=== PATIENT | female | born 1945 | race Caucasian/White ===

== ENCOUNTER → 2016-10-28 | Outpatient (CLI) | payer MEDICARE, BC ==
[~2016-10-28] MED LIST: HYDRODIURIL25 MG PO; LOPRESSOR25 MG PO; ZESTRIL40 MG PO
--- NOTE | ~2016-10-28 | ENPV ---
Carotid Duplex Study Demographics Patient Name SARAY SHERWOOD Date of Study 10/28/2016 Patient Number [id number] Gender Female Date of 1945 Age 71 Visit Number [id number] Height 51 Accession Number [id number] Weight 200 Referring Bernardo Mandujano MD Physician Physician Physician Ordering Bernardo Disease And Insect Control Boss Physician Jaky JENKINS Cloth Folder Machine Yanely Lombardo BS, RT Conclusions Summary The right internal carotid artery has severe, 60-79%, plaque and stenosis. The right vertebral artery is present with antegrade flow. The left internal carotid artery has severe, 60-79%, plaque and stenosis. The left vertebral artery is present with antegrade flow. Procedure Type of Study: Cerebral:Carotid, Carotid Doppler Bilateral. Indications for Study:Pre surgical clearance. Patient Status:Routine. Study Location:Vascular Lab. Technical Quality:Adequate visualization. Risk Factors - The patient's risk factor(s) include: arterial hypertension. Velocities are measured in cm/s ; Diameters are measured in cm Carotid Right Measurements Carotid Left Measurements + +--------+--------+ + + + +--------+ --------+ + + !Location !PSV !EDV !Angle !%Stenosis ! !Location !PSV ! EDV !Angle !%Stenosis ! + +--------+--------+ + + + +--------+ --------+ + + !Prox CCA !116 !18 !60 ! ! !Prox CCA !107 ! 26 !60 ! ! + +--------+--------+ + + + +--------+ --------+ + + !Dist CCA !95 !24 !60 ! ! !Dist CCA !96 ! 28 !60 ! ! + +--------+--------+ + + + +--------+ --------+ + + !Prox ICA !198 !64 !60 ! ! !Prox ICA !113 ! 29 !60 ! ! + +--------+--------+ + + + +--------+ --------+ + + !Dist ICA !104 !41 !60 ! ! !Dist ICA !152 ! 55 !60 ! ! + +--------+--------+ + + + +--------+ --------+ + + !Prox ECA !103 ! !60 ! ! !Prox ECA !77 ! !60 ! ! + +--------+--------+ + + + +--------+ --------+ + + !Vertebral !55 ! !60 ! ! !Vertebral !89 ! !60 ! ! + +--------+--------+ + + + +--------+ --------+ + + !Subclavian !69 ! !60 ! ! !Subclavian !85 ! !60 ! ! + +--------+--------+ + + + +--------+ --------+ + + - There is antegrade vertebral flow noted on the right side. - There is antegrade verte bral flow noted on the left side. - Add'l Measurements:ICAPSV/CCAPSV 1.71.ICAEDV/CCAEDV 3.66. - Add'l Measurements:ICAPS V/CCAPSV 1.42.ICAEDV/CCAEDV 2.08. Signature dtt: Wild Crenshaw dtd: 10/28/16 1104 Physician Self Edit
--- NOTE | ~2016-10-28 | ECHO ---
Transthoracic Echocardiography Report (TTE) Demographics Patient Name SARAY SHERWOOD Date of Study 10/28/2016 Patient Number [id number] Visit Number [id number] Date of 1945 Room Number Gender Female Number Age 71 year(s) Referring Gera Castillo MD Office Associate Danish RVT, [facility] Physician Shan Duque Physician Interpreting Bernardo Starkey MD Quality Control Representative Physician Supervising Ordering Bernardo Starkey MD, MD/MLP Physician Nurse Stress Manager Underwriting Conclusions Contractility Score Summary Normal Left Ventricular contractility was noted. Summary Hypertrophic obstructive cardiomyopathy. The estimated left ventricular ejection fraction is 70-75%. Asymmetric septal left ventricular hypertrophy. Resting LVOT velocity is 2.11 m/s, with a peak gradient of 18 mmHg suggestive of left ventricular outflow tract obstruction at rest. During valsalva maneuver, LVOT velocity increases to 2.53 m/s, peak gradient of 26 mmHg, consistent with dynamic left ventricle outflow obstruction. Normal right ventricle structure and function. Diastolic assessment reveals Grade I diastolic dysfunction. The left atrium is severely dilated. Moderate mitral stenosis. Moderate mitral regurgitation by color Doppler. Procedure Type of Study TTE procedure:2D Echocardiogram, M-Mode, Doppler , Color Doppler. Procedure Date Date: 10/28/2016 Start: 11:39 AM Study Location: Echo Lab Technical Quality: Adequate visualization Indications:Preop cardiac evaluation and Abnormal ECG. Appropriate Use Criteria: 9 Patient Status: Routine HR: 81 bpm BP: 131/93 mmHg M-Mode/2D Measurements LV Diastolic Dimension: 3.09 cm LV Systolic Dimension: 1.54 cm LV Septum Diastolic: 2.69 cm LV PW Diastolic: 1.44 cm AO Root Dimension: 2.3 cm Cardiac Output: 5.56 l/min AV Cusp Separation: 0.7 cm RV Diastolic Dimension: 2.07 cm LA volume: 42 ml LVOT: 1.8 cm RV Base: 2.54 cm LVOT VTI: 27 cm RV Mid: 1.94 cm LV Stroke volume: 68.67 ml TAPSE: 1.94 cm TDI-S': 15.8 cm/s Doppler Measurements AV Peak Velocity: 1.9 m/s MV Peak E-Wave: 1.02 m/s AV Peak Gradient: 14.44 mmHg MV Peak A-Wave: 1.97 m/s AV Mean Gradient: 10 mmHg MV E/A Ratio: 0.52 LVOT Peak Velocity: 1.43 m/s MV Mean Gradient: 8 mmHg PV Peak Velocity: 1.13 m/s PV Peak Gradient: 5.11 mmHg Findings Left Ventricle Asymmetric septal left ventricular hypertrophy. Diastolic assessment reveals Grade I diastolic dysfunction. Right Ventricle Normal right ventricle structure and function. Left Atrium The left atrium is severely dilated. Right Atrium Normal right atrial size. IVC imaging is consistent with normal RA pressures. Mitral Valve Moderate mitral annular calcification. Moderrate mitral stenosis. Moderate mitral regurgitation by color Doppler. There is systolic anterior motion of the MV. Aortic Valve The aortic valve is mildly sclerotic. There is trivial aortic regurgitation by color Doppler. Resting LVOT velocity is 2.11 m/s, with a peak gradient of 18 mmHg suggestive of left ventricular outflow tract obstruction at rest. During valsalva maneuver, LVOT velocity increases to 2.53 m/s, peak gradient of 26 mmHg, consistent with dynamic left ventricle outflow obstruction. Tricuspid Valve Trivial tricuspid regurgitation by color Doppler. Pulmonic Valve Mild pulmonic valve regurgitation by color Doppler. Pericardial Effusion No evidence of pericardial effusion. Pleural Effusion No evidence of pleural effusion. Contractility Score LV regional wall motion:(0-Non visualized 1-Normal 2-Hypokinesis 3-Akinesis 4-Dyskinesis 5-Aneurysm) Signature dtt: CHINMAY MALDONADO dtd: 10/28/16 1139 Physician Self Edit
--- NOTE | ~2016-10-28 | ESTC ---
Cardiac Perfusion Imaging Demographics Patient Name PRESLEY Dubose Gender Female Patient Number [id number] Race Visit Number [id number] Ethnicity [employer] ID Room Number Accession Number [id number] Height 51 inches Date of 1945 Weight 200 pounds Interpreting Bernardo Jaky Date of study 10/28/2016 Physician MD Supervising MD/YONNYP Laurent Chen APRN NM Technologist Gerry Mattson Ordering Physician Stress pilot plant technician Stress ECG Reading Laurent Chen APRN Nurse Santo Rivera RN Physician The procedure was explained in detail to the patient. Risks, complications and alternative treatments were reviewed. Written consent was obtained. Procedure Admit Source:Other. Procedure Type: Nuclear Stress Test:Pharmacological, Lexiscan, Cardiolite Stress Test Procedure Start time: 10/28/2016 09:55 Indications: Pre surgical clearance. Risk Factors The patient risk factors include:hypertension. Conclusions Summary Perfusion Images: The overall quality of the study is good. Left ventricular cavity is noted to be normal on the stress and normal on the rest images. There is no evidence of abnormal lung activity. The right ventricle is not visualized an cannot be assessed. Impression ECG portion of the lexiscan stress test is clinically nondiagnostic for ischemia by diagnostic criteria. Myocardial perfusion imaging is severely abnormal. The images reveal a reversible defect in the entire anterior wall anterolateral/distal anteroseptal consistent with ischemia . Overall left ventricular systolic function was abnormal. This is a high risk stress test. Calculated LVEF is 49% and TID ratio is 1.24. There are no previous studies for comparison . Stress Protocols Resting ECG SInus rhythm with LBBB Pre-stress physical exam: Patient assessed by Ermias CHIU prior to testing. Chest - CTA Cardio - RRR, III/ SM Predicted HR: 149 bpm HR response: Appropriate BP response: Appropriate Reason for termination:Infusion complete ECG Findings Indeterminate ECG due to baseline abnormalities. Arrhythmias No rhythm abnormality. Symptoms No symptoms with Lexiscan infusion. Post test completion and lexiscan infusion - patient developed hypotension and HR slowed to 60 BMP from baseline 90's. Asypotomatic during hypotension - lowest 70/40, started NACL bolus of 500ml - BP recovered to 101/59. Complications Procedure complication: None. Stress Interpretation Appropriate hemodynamic response to Lexiscan. ECG portion is nondiagnostic for ischemia due to underlying ST changes from LBBB. Will correlate with nuclear images. Imaging Results Summed scores - Summed stress score: 23 - Summed rest score: 5 - Summed difference score: 18 Stress ejection Ejection fraction:49 % EDV :157 ml ESV :80 ml Stroke volume :77 ml LV mass :185 gr Imaging Protocols Rest Stress Isotope:Tc99m Sestamibi IV Isotope: Tc99m Sestamibi IV Isotope dose:13.9 mCi Isotope dose:43.7 mCi Date:10/28/2016 07:58 Date:10/28/2016 10:15 Technique: SPECT Technique: Gated Supine SPECT Supine Scan Time:45-60 minutes post Scan Time:45-60 minutes post injection injection Procedure Medications - Regadenoson (Lexiscan) 0.4 mg IV over 10-15 sec. I.V. 0.4 mg. - NaCL 0.9 I.V. bolus 500 ml. Medications administered per verbal order and read back to physician prior to administration. Medical History Admission Data Admission date: 10/28/2016 Admission Time: Hospital Status: Outpatient. Signatures dtt: JAKY MALDONADO dtd: 10/28/16 0955 Physician Self Edit
== END | disposition disaster alternative care site (69) ==
LOC: GRAD 07:30
DX: I44.7 Left bundle-branch block, unspecified (principal); I10 Essential (primary) hypertension; I42.8 Other cardiomyopathies; I51.7 Cardiomegaly; I72.9 Aneurysm of unspecified site; I65.23 Occlusion and stenosis of bilateral carotid arteries; I34.0 Nonrheumatic mitral (valve) insufficiency; R01.1 Cardiac murmur, unspecified; R09.89 Other specified symptoms and signs involving the circulatory and respiratory systems
CPT/HCPCS: A9500; J0280; J1644; J2001; J2250; J2785; J3010; J7030

== ENCOUNTER 2016-10-30 09:04 | Outpatient (CLI) | payer MEDICARE, BC ==
[~2016-10-30] VITALS: Ht 160 cm; Wt 77.8 kg
--- NOTE | ~2016-10-30 | CATH ---
Cardiac Diagnostic Report Demographics Patient Name PRESLEY Dubose Gender Female Date of 1945 Age 71 year(s) Patient Number [id number] Date of Study 10/30/2016 Visit Number [id number] Room Number [id number] [place] [id number] Ht 160 cm Wt 77.8 kg Referring Gera Castillo MD Primary Physician Physician Performing [facility] Secondary Physician Physician Jaky JENKINS Diagnostic [facility] Assisting Physician Physician Jaky JENKINS Interventional Physician Cdl Dedicated Truck Driver Physician Findings and Conclusions Diagnostic Findings and Conclusion 1. Triple vessel obstructive CAD. 2. HOCM with post PVC gradient peak to peak gradient of 128 mmHg and mean gradient of 73 mmHg. Diagnostic Recommendations 1. Septal Myectomy 2. CABG for complete revascularization 3. Reviewed echocardiogram and coronary angiogram with Dr. Pierce. Pt has appt in [place] surgery clinic for preop on 11/02/2016. Procedure Description The patient was brought to the diagnostic cardiac catheterization-EP laboratory in the fasting, non-sedated state. Informed consent was obtained in the written and verbal form after the risks and benefits were explained. The patient had no further questions and agreed to proceed. The planned puncture-incision site(s) were shaved and prepped with ChloraPrep and draped in the usual sterile manner. Conscious sedation, supplemental oxygen, and pain control medications were delivered by a registered nurse under physician guidance. Surface ECG rhythm, blood pressure measurement, and pulse oximetry were monitored throughout the procedure. Arterial access. The access site was infiltrated with lidocaine. The vessel was entered with the Seldinger technique. A sheath was advanced into the vessel and used for catheter placement. Selective left coronary angiography. A catheter was advanced into the left coronary vessel ostium under Fluoroscopic guidance. Contrast was injected by hand. Images were obtained in multiple projections. Selective right coronary angiography. A catheter was advanced into the right coronary vessel ostium under fluoroscopic guidance. Contrast was injected by hand. Images were obtained in multiple projections. Left heart catheterization. A catheter was advanced across the aortic valve to the left ventricle under fluoroscopic guidance. Resting hemodynamics were obtained. Arterial artery hemostasis was achieved. The patient was transferred to a regular nursing floor via cart accompanied by a nurse. The patient left the laboratory in stable condition. Diagnostic Cath Status: Elective Procedure Procedure Type Diagnostic procedure:Angiography:, Coronary Angios w/[facility] Indications: Positive Standard Stess: High. The procedure was explained in detail to the patient. Risks, complications and alternative treatments were reviewed. Written consent was obtained. Medications Reviewed with Patient prior to Procedure. Angiographic Findings Dominance: Right Cardiac Arteries and Lesion Findings LMCA: Abnormal. Lesion on LMCA: Ostial.40% stenosis . LAD: Lesion on Prox LAD: Ostial.70% stenosis . LCx: Abnormal. Lesion on 1st Ob Manisha: Proximal subsection.80% stenosis . RCA: Abnormal. Lesion on Prox RCA: Proximal subsection.60% stenosis . Lesion on 1st RPL: Proximal subsection.90% stenosis . Coronary Tree Procedure Data Procedure Date Date: 10/30/2016Start: 11:05 AMEnd: 12:00 PM Entry Locations - Retrograde Percutaneous access was performed through the Right Radial artery (Primary location). A 6 Fr sheath was inserted. Hemostasis was successfully obtained using an R band. Closure Comments: 13 cc of air in R band placed by Manjeet Caballero.. Procedure Medications Order and Administration + + + + + !Time !Medication !Dosage !Route ! + + + + + !10/30/2016 11:02 AM !Versed !1 mg !I.V. ! + + + + + !10/30/2016 11:10 AM !Radial Verapamil !2.5 mg ! ! + + + + + !10/30/2016 11:11 AM !Heparin (ACC_3) !4000 units !I.V. bolus ! + + + + + !10/30/2016 11:42 AM !Versed !1 mg !I.V. ! + + + + + Devices Used - A5 Fr. BS JR 4 Diag. Catheterwas used for:Right coronary angiography. - A5 Fr. BS JL 3.5 Diag. Catheterwas used for:Left coronary angiography. - A6 Fr. Dual Lumen Pigtailwas used for:LV Pressures.Unable to cannulate the vessel. - A6 Fr. BS AL1 Diag. Catheterwas used for:LV Pressures.Unable to cannulate the vessel. - A5 Fr. BS MPA2 Diag. Catheterwas used for:Valve Crossing. - A6 Fr. Dual Lumen Pigtailwas used for:LV Pressures. Contrast Material - Isovue 40085 ml Fluoroscopy Time: Diagnostic: 17:48 minutes. Total: 17:48 minutes. Fluoroscopy Dose: Diagnostic: 1381 mGy. Total: 1381 mGy. Estimated Blood Loss: 15 ml. Medical History Allergies - No known allergies. Risk Factors The patient risk factors include:treated hypertension, last creatinine: 0.7 mg/dl and creatinine clearance: 90.54 ml/min. Admission Data Admission Date: 10/30/2016 Admission Time: 09:04 AM Admit Source: Other Insurance Payors: Medicare. Admission Medications + +------+------+ + + + + !Medication !Dosage!Times !Last !Last !Administered !Comments ! ! ! !Per !Delivery !Delivery ! ! ! ! ! !Day !Date !Time ! ! ! + +------+------+ + + + + !VIGNESH ! ! ! ! ! ! ! !Inhibitor ! ! ! ! ! ! ! !(any) ! ! ! ! ! ! ! + +------+------+ + + + + !Beta Shreyas! ! ! ! ! ! ! !(any) ! ! ! ! ! ! ! + +------+------+ + + + + Clinical Evaluation Leading to Procedure - There were no CAD presentation symptoms. - The patient's anginal syndrome during the past two weeks was assessed as: Class II according to the [place] Cardiovascular Society Classification System (CCS). Anti-anginal medications were prescribed during the past two weeks. The medication is: Beta Blockers. - The reason for the patient's laboratory mechanic helper visit is evaluation of cardiomyopathy and/or evaluation of left ventricular systolic dysfunction, and pre-operative evaluation before non-cardiac surgery. Hemodynamics Condition: Rest O2 Consumption: Estimated: 163.85Heart Rate: 66 bpm Pressures (mmHg) +-----+ + !Site !Pressure ! +-----+ + !AO !145/86 (114) ! +-----+ + !AO !124/57 (90) ! +-----+ + !AO !118/49 (87) ! +-----+ + !LV !185/-3 ,14 ! +-----+ + !LV !177/0 ,12 ! +-----+ + !AO !121/61 (89) ! +-----+ + !AO !92/44 (75) ! +-----+ + !LV !220/1 ,12 ! +-----+ + !LV !179/1 ,12 ! +-----+ + !AO !119/60 (88) ! +-----+ + !LV !178/5 ,12 ! +-----+ + !AO !/45 (76) ! +-----+ + !LV !196/3 ,23 ! +-----+ + !AO !44 (76) ! +-----+ + !LV !196/2 ,22 ! +-----+ + !AO !44 (75) ! +-----+ + !LV !196/2 ,21 ! +-----+ + !AO !108/54 (78) ! +-----+ + !LV !171/2 ,14 ! +-----+ + !AO !125/65 (91) ! +-----+ + !LV !160/2 ,9 ! +-----+ + !AO !125/64 (91) ! +-----+ + !LV !160/0 ,9 ! +-----+ + !AO !122/58 (88) ! +-----+ + !AO !116/48 (89) ! +-----+ + !LV !189/-1 ,18 ! +-----+ + !LV !174/0 ,13 ! +-----+ + !AO !124/61 (89) ! +-----+ + !LV !168/0 ,11 ! +-----+ + !AO !120/56 (88) ! +-----+ + !LV !177/1 ,15 ! +-----+ + !AO !127/65 (94) ! +-----+ + !LV !165/0 ,2 ! +-----+ + !AO !133/69 (97) ! +-----+ + !AO !133/69 (97) ! +-----+ + !LV !162/1 ,6 ! +-----+ + !LV !162/1 ,6 ! +-----+ + !AO !130/67 (94) ! +-----+ + !LV !160/0 ,7 ! +-----+ + !AO !128/66 (93) ! +-----+ + !AO !128/66 (89) ! +-----+ + !LV !158/0 ,7 ! +-----+ + !LV !158/0 ,7 ! +-----+ + !AO !98/61 (76) ! +-----+ + !LV !140/-3 ,0 ! +-----+ + !AO !96/54 (71) ! +-----+ + !LV !134/0 ,5 ! +-----+ + Valve Gradients and Areas + +---------+---------+---------+ +---------+ + !Valve !Peak !Mean !Area !Index !Flow !Source ! + +---------+---------+---------+ +---------+ + !Aortic !30 !22 ! ! ! ! ! + +---------+---------+---------+ +---------+ + !Aortic !30 !22 ! ! ! ! ! + +---------+---------+---------+ +---------+ + Shunts Oxygen Values O2 Capacity 176.8 O2 Consumption 163.85 Discharge Data Discharge Date: 10/30/2016 Hospital Status: Outpatient Signatures dtt: JAKY MALDONADO dtd: 10/30/16 1105 Physician Self Edit
[2016-10-30 09:48] LABS: BASOPHIL # 0.1 K/uL (0.0-0.2); BASOPHIL % 0.4 %; EOSINOPHIL # 0.1 K/uL (0.0-0.5); HEMATOCRIT 39.9 % (33.0-46.0); IMMATURE GRANULOCYTE % 0.3 %; LYMPHOCYTE # 1.3 K/uL (0.8-4.0); LYMPHOCYTE % 10.9 %; MCH 28.3 pg (27.0-34.0); MCHC 32.6 gm/dL (32.0-36.5); MCV 86.7 fl (83.0-98.0); MONOCYTE # 1.2 K/uL (0.0-1.0); MONOCYTE % 10.3 %; MPV 10.5 fl (9.4-12.4); NEUTROPHIL # (ANC) 8.9 K/uL (1.8-7.8); NEUTROPHIL % 77.1 %; NRBC % 0 /100WBC (0-0.00); PLATELET COUNT 379 K/uL (150-450); WBC 11.6 K/uL (4.0-11.0)
[2016-10-30 10:01] LABS: PROTIME 10.5 SECONDS (9.8-11.4); PTT 29 SECONDS (25-32)
[2016-10-30 10:08] LABS: ALBUMIN 3.4 gm/dL (3.5-5.0); ALK PHOS 102 IU/L (33-138); ALT 17 IU/L (12-78); ANION GAP 9.7 (10.0-19.0); AST 14 IU/L (10-40); BLOOD UREA NITROGEN 17 mg/dL (6-24); CALCIUM 8.9 mg/dL (8.5-10.5); CHLORIDE 97 mMol/L (96-110); CO2 31 mMol/L (22-32); CREATININE 0.7 mg/dL (0.5-1.1); ESTIMATED GFR (MDRD EQUATION) > 60; POTASSIUM 3.7 mMol/L (3.7-5.1); SODIUM 134 mMol/L (135-145); TOTAL BILIRUBIN 0.8 mg/dL (0.0-1.5); TOTAL PROTEIN 7.3 g/dL (6.0-8.4)
--- NOTE | 2016-10-30 12:52 | NUR ---
1235 REPORT TO Sedrick FRANCOIS RN
[2016-10-30 16:34] LABS: BILIRUBIN URINE NEGATIVE (NEGATIVE); BLOOD URINE 10 /UL (NEGATIVE); COLOR URINE YELLOW (YELLOW); GLUCOSE URINE NEGATIVE (NEGATIVE); KETONE URINE NEGATIVE (NEGATIVE); LEUKOCYTES URINE 500 /UL (NEGATIVE); NITRITE URINE NEGATIVE (NEGATIVE); PH URINE 6.5 (4.0-8.0); PROTEIN URINE 15 mg/dL (NEGATIVE); TURBIDITY URINE CLEAR (CLEAR); UROBILINOGEN URINE 4 mg/dL (NORMAL)
[2016-10-30 16:50] LABS: BACTERIA URINE MODERATE (NEGATIVE); MUCUS URINE 1+ (NEGATIVE); RBC URINE 0-2 #/HPF (NEGATIVE)
== END 2016-10-30 16:30 | disposition disaster alternative care site (69) ==
LOC: GPOC 09:04 → GPCU 09:04 → GPOC 16:30
PROVIDERS: Internal Medicine Interventional Cardiology; Thoracic Surgery (Cardiothoracic Vascular Surgery)
DX: R94.39 Abnormal result of other cardiovascular function study (principal); I42.1 Obstructive hypertrophic cardiomyopathy; I10 Essential (primary) hypertension
CPT/HCPCS: C1769; C1887; J1644; J2001; J2250; J3010; J7030

== ENCOUNTER 2016-11-03 10:04 | Inpatient (IN) | payer MEDICARE, BC ==
[~2016-11-03] VITALS: Ht 160 cm; Wt 83.7 kg
--- NOTE | ~2016-11-03 | DS ---
PATIENT'S NAME: SARAY SHERWOOD [facility] AGE: 71 Y [address] ROOM: [id number] [place], [place] [address] LOCATION: GPCU ADMIT DATE: 11/03/2016 Discharge Summary DISCHARGE DATE: 11/13/2016 FAMILY PHYSICIAN: Cyril Boss MD ATTENDING PHYSICIAN: Srini Pierce HISTORY OF PRESENT ILLNESS/HOSPITAL COURSE: The patient is a 71-year-old white female who was seen and evaluated by her primary care provider to undergo a right rotator tear cuff surgery and had been recommended to undergo cardiac clearance before surgery. She was set up to see Dr. Jaky Chang for a cardiac work with findings demonstrating obstructive hypertrophic cardiomyopathy as well as a cardiac catheterization revealing multivessel coronary artery disease. She was seen in consultation by Dr. Pierce for coronary artery bypass grafting and a septal myectomy. In the course of the workup, she had bilateral carotid Doppler studies performed. These carotid studies demonstrate high-grade heavily calcified stenosis with right worse than left. She, therefore, was seen in consultation by Dr. Viera to undergo a right-sided carotid endarterectomy prior to undergoing surgical revascularization. On 11/04/2016, the patient presented to the operative suite for a combined carotid/CABG surgery with the CABG portion consisting of a right coronary artery bypass grafting x4 with left internal mammary artery bypass to the LAD, reverse saphenous vein graft to the posterior descending artery, reverse saphenous vein graft to the posterior lateral septal branch, and a reverse saphenous vein graft to the obtuse marginal, in addition to the septal myectomy. Following the procedure, the patient transferred up to the ICU. Her hemodynamic status was monitored carefully. She extubated without complication. She did receive a couple units of packed cells. She did show evidence of active mediastinal bleeding and did return to the operative suite approximately 7 hours from the original surgery for a mediastinal exploration with control of bleeding which was indeed successful. The patient transferred back to the Intensive Care Unit. She was intubated. She utilized a lex. She extubated without complication in the hours following. She was weaned off the lex. She was transferred to the progressive care floor on 11/07/2016. The patient did have runs of postoperative atrial fibrillation. She did receive several boluses of amiodarone throughout the hospital stay. We started her on Epogen and iron for acute blood loss anemia and she did receive several units of packed cells prior. Her chest tubes, pacemaking wires, and Kim catheter were discontinued in the routine postoperative timeframe. Her Kim catheter had been tubbed on and she did develop hematuria which did clear within a 24- hour period. We did start her on Xarelto given her persistent atrial fibrillation. She was placed on oral amiodarone as well when she was not receiving IV amiodarone. She did mount an increased white blood cell count. She did become diaphoretic. We did do blood cultures which were negative. PATIENT'S NAME: SARAY SHERWOOD [facility] AGE: 71 Y [address] ROOM: [place] [address] LOCATION: GPCU ADMIT DATE: 11/03/2016 Discharge Summary DISCHARGE DATE: 11/13/2016 FAMILY PHYSICIAN: Cyril Boss MD ATTENDING PHYSICIAN: Srini Pierce Sputum culture which was negative. She had no healing complications concerning for infection. Her UA, however, did return positive and she was treated with the appropriate antibiotic for urinary tract infection. Her atrial fibrillation did stabilize and she did return to normal sinus rhythm. Care management did work with the patient and her family with expectations for the patient's discharge and their desires for any skilled care thereafter. The patient's family did ask for [facility]. The arrangements were made, and on 11/13/2016, the patient was found stable to discharge to [facility]. ADMISSION DIAGNOSES: Include deconditioning secondary to coronary artery bypass grafting, septal myectomy, and carotid endarterectomy to the right. SECONDARY DIAGNOSES: Include peripheral vascular disease, coronary artery disease, hypertension, postoperative paroxysmal atrial fibrillation, osteoarthritis, and postoperative urinary tract infection. FOLLOWUP: The patient will follow with her primary care provider, Dr. Cyril Boss. The patient will be asked to follow up with Dr. Pierce, Dr. Chang, and Dr. Viera in 2 weeks on the same day with a chest x-ray and lab prior. DISCHARGE INSTRUCTIONS: The patient is to have a regular diet of regular texture. She is full weightbearing status with a raised wheeled walker and strict sternal precautions until 12/16/2016. She is to work with PT and OT. The patient will not have any dressings. The patient is to have her graft site sutures removed at the ankle, knee, and groin in the left leg on 11/23/2016. She may shower. The patient is also to wear an ankle stability boot on in the day time and off in the nighttime. The patient will also be granted one glass of wine per evening. DISCHARGE MEDICATIONS: Include, 1. Amiodarone 400 mg twice a day. 2. Aspirin 81 mg daily. 3. Lipitor 40 mg daily. 4. Cipro 500 mg b.i.d. until gone. 5. Colace 100 mg b.i.d. 6. Pepcid 20 mg b.i.d. 7. Ferrous sulfate 325 mg daily. 8. Lasix 40 mg daily. 9. Prinivil 10 mg daily. 10. Metoprolol 25 mg b.i.d. 11. Multivitamin daily. 12. Potassium chloride 20 mEq daily. 13. Xarelto 20 mg daily. 14. Tylenol 650 mg q.4 hours p.r.n. for mild pain. PATIENT'S NAME: SARAY SHERWOOD [facility] AGE: 71 Y [address] ROOM: [place] [address] [facility] ADMIT DATE: 11/03/2016 Discharge Summary DISCHARGE DATE: 11/13/2016 FAMILY PHYSICIAN: Cyril Boss MD ATTENDING PHYSICIAN: Srini Pierce 15. [place] 5/325 one to two every 4 to 6 hours as needed for pain. 16. Dulcolax suppository 10 mg p.r.n. constipation. 17. Milk of magnesia 30 mL daily/p.r.n. constipation. 18. Zofran 4 mg q.6 hours p.r.n. nausea and vomiting. The patient does verbalize understanding of the discharge orders. The patient discharged to [facility] under the care of her primary care provider in stable condition. ARNULFO DUVALL APRN FOR DO ARI ARMENDARIZQ/petral /[id number] d: 12/03/16 0525 t: 12/23/16 0754, DISCHARGE SUMMARY
--- NOTE | ~2016-11-03 | ENPV ---
Vascular Lower Extremity Vein Mapping Procedure Demographics Patient Name SARAY SHERWOOD Date of Study 11/03/2016 Patient Number [id number] Gender Female Date of 1945 Age 71 Visit Number [id number] Height Accession Number [id number] Weight Room Number G6203 BSA BMI Referring Kari Domingo MD Physician DO Physician Physician Ordering Physician Kari Cheng DO [employer]rication Mig [employer]der [employer] Sabrina Tolbert RVT Conclusions Summary Enlarged lymph node in the left groin. Right GSV appears suitable for harvest from groin to knee. Left GSV appears suitable for harvest throughout left leg. Procedure Type of Study: Veins:Lower Extremity Vein Mapping, Vein Mapping NH. Indications for Study:Pre-op CABG. Appropriate Use Criteria:9 Allergies - No known allergies. Patient Status:Routine. Study Location:Vascular Lab. Technical Quality:Adequate visualization. Velocities are measured in cm/s ; Diameters are measured in cm + ++--------++--------+ !Superficial - Great Saphenous Vein !!Right !!Left ! + ++--------++--------+ !Location !!Diameter!!Diameter! + ++--------++--------+ !Sapheno Femoral Junction !!0.36 !!0.43 ! + ++--------++--------+ !GSV High Thigh !!0.35 !!0.28 ! + ++--------++--------+ !GSV Mid Thigh !!0.27 !!0.31 ! + ++--------++--------+ !GSV Low Thigh !!0.31 !!0.29 ! + ++--------++--------+ !GSV Knee !!0.25 !!0.29 ! + ++--------++--------+ !GSV High Calf !!0.18 !!0.27 ! + ++--------++--------+ !GSV Mid Calf !!0.15 !!0.19 ! + ++--------++--------+ !GSV Low Calf !!0.12 !!0.21 ! + ++--------++--------+ Signature dtt: HERVE AREVALO dtmya: 11/03/16 1208 Physician Self Edit
--- NOTE | ~2016-11-03 | OR ---
PATIENT'S NAME: SARAY DENNY [facility] AGE: 71 Y [address] ROOM: [address] [place] [id number] LOCATION: GPCU ADMIT DATE: 11/03/2016 OR/Procedure Report DISCHARGE DATE: 11/13/2016 FAMILY PHYSICIAN: Cyril Boss MD ATTENDING PHYSICIAN: Srini Pierce SURGEON: Srini Pierce DO ANALOG IC DESIGN ARCHITECT: DATE OF PROCEDURE: 11/04/2016 PREOPERATIVE DIAGNOSIS: Active mediastinal bleeding. POSTOPERATIVE DIAGNOSES: 1. Active mediastinal bleeding. 2. Control of bleeding from 1-mm adventitial arterial branch in between the aorta and main pulmonary artery. PROCEDURE: Mediastinal exploration with control of bleeding. BRIEF HISTORY: Mrs. Denny is approximately 7 hours now postoperative from her septal myectomy with coronary artery bypass grafting. She is extubated and has been sitting up in a chair and when arising from the chair to go back to bed, she had a profound dump of chest tube output of approximately 350 mL with a drop in pressure. She was placed back to bed and I was called. She has continued to drain approximately 300 mL every 15 minutes and we have taken her back to the operative suite. DESCRIPTION OF PROCEDURE: She has been brought back to the operative suite, and the patient was sterilely prepped and draped in the usual fashion after appropriate induction of general anesthetic. Previous sternal incision was opened, suture material was removed, and the ZipFix system was removed from the sternum. A large amount of clot was noted in the pericardial space and in the pleural space, this was evacuated without difficulty. The distal sites were all hemostatic, the proximal sites were hemostatic, the aortotomy site was hemostatic, and all cannulation sites were hemostatic. We did not find any significant bleeding initially, but noticed continuing slow welling of bloody fluid in the aortic area. Further inspection was carried out and in between the pulmonary artery and aorta where we had divided tissues to allow cross clamping was a 1-mm arterial vessel that was continuing to bleed. Two surgical clips were placed on it and no evidence of further bleeding was encountered. Copious amounts of antibiotic-infused saline was used to irrigate the sternum and mediastinum. Chest tubes had been irrigated free of blood and the sternum was reapproximated with a ZipFix system. Soft tissues were irrigated again and closed in a layered fashion. All sponge, instrument, and needle counts were correct. The patient was transferred to the intensive care unit in stable condition. PATIENT'S NAME: SARAY DENNY [facility] AGE: 71 Y [address] ROOM: [address] [address] [facility] ADMIT DATE: 11/03/2016 OR/Procedure Report DISCHARGE DATE: 11/13/2016 FAMILY PHYSICIAN: Cyril Boss MD ATTENDING PHYSICIAN: Srini Pierce DO DUNIA ARMENDARIZ/jose antonio /[id number] d: 11/17/162028 t: 11/19/16 1518, OPERATIVE SUMMARY
--- NOTE | ~2016-11-03 | OR ---
PATIENT'S NAME: SARAY SHERWOOD [facility] AGE: 71 Y [address] ROOM: [address] [address] LOCATION: GICU ADMIT DATE: 11/03/2016 OR/Procedure Report DISCHARGE DATE: FAMILY PHYSICIAN: Cryil Boss MD ATTENDING PHYSICIAN: Srini Pierce SURGEON: Jose L Viera MD DIRECTOR OF CONSUMER MARKETING: DATE OF PROCEDURE: 11/04/2016 POSTOPERATIVE DIAGNOSIS: High-grade right internal carotid artery stenosis. POSTOPERATIVE DIAGNOSIS: High-grade right internal carotid artery stenosis. PROCEDURE: Combined carotid/CABG, dictating carotid portion. Dr. Pierce will dictate CABG portion. ANESTHESIA: General. ESTIMATED BLOOD LOSS: 100 mL. PRACTICE MANAGERS: MAK Crooks. OPERATIVE FINDINGS: Have a high-grade heavily calcified stenosis. DESCRIPTION OF PROCEDURE: The patient was brought to the OR, placed supine on the OR table, placed under general anesthesia, prepped and draped in a sterile manner. Preoperative time-out was performed. The patient had arterial as well as a Kim catheter placed for intraoperative monitoring. Preop antibiotics were administered with 2 g of Ancef. We made a standard incision along the anterior border sternocleidomastoid muscle. We dissected the soft areolar tissue on the anterior border of the sternocleidomastoid muscle. After transected the platysma dissected the internal jugular along its length. Identified the facial vein which was ligated and transected. We then dissected out the common, external, internal and placed a clip on the superior thyroid, which was removed at the end the case. We gave 5000 units of heparin. We clamped on all 3 major arteries made arteriotomy from the common to the internal using an 11 blade as well as Hook scissors. We then passed a 3 x 4 Sundt shunt. Flow was confirmed in the shunt with use of Doppler. We removed the plaque in its entirety. We then did a standard bovine pericardial patch before completing anastomosis, we clamped and removed the shunt. We allowed for backbleeding from the internal as well as flushing from the common. We completed anastomosis and removed the clamp from the common and clipped from the superior thyroid as well as well as the common. We waited 10 heartbeats and removed the clamp from the internal. Any leaking areas were repaired with 6-0 Prolene. Flow was confirmed in all 3 vessels using Doppler. PATIENT'S NAME: SARAY SHERWOOD [facility] AGE: 71 Y [address] ROOM: [place] [address] LOCATION: [facility] ADMIT DATE: 11/03/2016 OR/Procedure Report DISCHARGE DATE: FAMILY PHYSICIAN: Cyril Boss MD ATTENDING PHYSICIAN: Srini Pierce Hemostasis was achieved with use of thrombin and protamine was not reverse as the patient was proceeding on to CABG. The wound was packed with two Ray-Nick gauze as well as thrombin spray and covered with two Tegaderm. The patient then proceed on to CABG. MD DELMAR KEYES/jose antonio /[id number] d: 11/04/16 1400 t: 11/05/16 1054, OPERATIVE SUMMARY
--- NOTE | ~2016-11-03 | PUL ---
PATIENT'S NAME: SARAY SHERWOOD [facility] AGE: 71 Y [address] ROOM: [place] [address] LOCATION: GICU ADMIT DATE: 11/03/2016 Pulmonary DISCHARGE DATE: FAMILY PHYSICIAN: Cyril Boss MD ATTENDING PHYSICIAN: Srini Pierce NAME OF PROCEDURE: Bedside Spirometry . DATE OF PROCEDURE: November 03, 2016 TECH: MARYSOL Theodore REASON FOR EXAM: Pre-surgical evaluation RESULTS: FVC was 2.84 liters which is 100% of predicted and normal, FEV1 was 2.25 liters which is 105% of predicted and normal, and FEV1/FVC was 79.2% and normal. The flow volume curve did not reveal any significant airflow limitation. After bronchodilator administration FVC increased to 2.85 liters and FEV1 increased to 2.39 liters which is a 6% increase. FEV1/FVC was 84%. PHYSICIAN INTERPRETATION: The patient has no airflow limitation and no significant bronchodilator response. HANNA PATEL MD RFMaxwell/gomez /[id number] dtt: 11/05/16 1211 , HANNA PATEL dtd: 11/05/16 1140
--- NOTE | ~2016-11-03 | OR ---
PATIENT'S NAME: SARAY DENNY [facility] AGE: 71 Y [address] ROOM: [place] [address] LOCATION: GPCU ADMIT DATE: 11/03/2016 OR/Procedure Report DISCHARGE DATE: 11/13/2016 FAMILY PHYSICIAN: Cyril Boss MD ATTENDING PHYSICIAN: Srini Pierce SURGEON: Srini Pierce DO PACKAGING MACHINE OPERATOR: DATE OF PROCEDURE: 11/04/2016 PREOPERATIVE DIAGNOSES: 1. Multivessel coronary artery disease. 2. Hypertrophic cardiomyopathy. 3. Bilateral carotid stenosis, severe. POSTOPERATIVE DIAGNOSES: 1. Multivessel coronary artery disease. 2. Hypertrophic cardiomyopathy. 3. Bilateral carotid stenosis, severe. PROCEDURE PERFORMED: 1. Coronary artery bypass grafting x4; left internal mammary artery bypass to the LAD; reverse saphenous vein graft, posterior descending artery; reverse saphenous vein graft, posterior lateral septal branch; reverse saphenous vein graft to the obtuse marginal. 2. Septal myomectomy. REFERRING PHYSICIAN: Jaky Chang MD. BRIEF HISTORY: Mrs. Denny is a 71-year-old female with the above-noted diagnosis. She has just finished a right carotid endarterectomy by Dr. Viera. Please see his dictation for specific details and we are now going to perform the remainder of this surgical procedure. DESCRIPTION OF PROCEDURE: She has been sterilely prepped and draped in the usual fashion for sternotomy with lower extremity vein harvest. A sternal incision was made and the sternum was divided in the midline with sternal saw. Electrocautery and Karley were used to make the edges of the sternum hemostatic. Concurrently to this, the saphenous vein was harvested endoscopically from the lower extremity. Mammary retractor was placed. Left internal mammary artery was identified and then harvested in standard fashion with surgical clips and electrocautery. Prior to its division, the patient was fully heparinized. The mammary was then divided and prepared for bypass. Mammary retractor was removed and a sternal retractor was placed. Pericardium was opened. Pericardial wall was created. Cannulation sutures were placed in the ascending aorta and right atrium for bypass and cardioplegic cannulas, as PATIENT'S NAME: SARAY DENNY [facility] AGE: 71 Y [address] ROOM: [place] [address] LOCATION: GPCU ADMIT DATE: 11/03/2016 OR/Procedure Report DISCHARGE DATE: 11/13/2016 FAMILY PHYSICIAN: Cyril Boss MD ATTENDING PHYSICIAN: Srini Pierce well as separate cannulation sutures were placed in the right superior pulmonary vein for future cannulation. The patient was now cannulated and connected to bypass pump without difficulty. The vein was now prepared for bypass. Cardiopulmonary bypass was initiated and a crossclamp was applied. Antegrade and retrograde cardioplegia was given along with topical cold saline for cardiac arrest. We now cannulated the right superior pulmonary vein for decompression of the left ventricle. The posterior descending artery was identified and opened. End-to-side anastomosis was made to this with the vein graft with 7-0 Prolene. The vein graft was then sized appropriately and connected to the cardioplegia system. Another 500 mL of the vein graft and retrograde cardioplegia was given and this was done after each distal anastomosis. Similar distal anastomoses were then created to the posterior lateral septal branch, the obtuse marginal branch, and the left anterior descending branch with the left internal mammary artery. Once this was completed, the mammary artery was open momentarily to show good distal flow and ensure an intact anastomosis and then the bulldog was placed back into the mammary and another dose of cardioplegia was given. We now opened the ascending aorta, identifying a normal appearing trileaflet valve. The valve leaflets were retracted. The septal hypertrophy was easily noted and the myectomy performed with an 11 blade. During this time period, warm blood was given in a retrograde fashion and via the vein grafts on a 10-minute basis. We now closed the ascending aorta with 2 levels of running 3-0 pledgeted Prolene, placed the patient in deep Trendelenburg position and de-airing maneuvers were undertaken and the crossclamp was removed. The bulldog was removed from the mammary. Distal flow was achieved. Partial occlusion clamp was placed and 3 anastomoses were created to the ascending aorta with 6-0 Prolene and 4-0 punch. Once this was all completed, the bulldog was removed from the vein graft after the partial occlusion clamp was removed. The vein grafts were de-aired, flow was given. Distal sites were hemostatic. Proximal sites were hemostatic. Aortotomy site was hemostatic. Two atrial and one ventricular temporary pacemaking wires were placed. Warm blood that had been drained during the partial occlusion was now discontinued and the retrograde cannula was removed. Ventilations were initiated. We now weaned from cardiopulmonary bypass without difficulty. We did require atrial pacing at 80 for sinus bradycardia and arrhythmia, but we weaned from bypass without difficulty. Venous cannula was removed. Appropriate volume returned from the pump to the patient. Ascending aortic cannula was removed, along with the right superior pulmonary vein cannula that had been previously removed. The ascending aortic cannula was now removed after appropriate volume was returned from the pump to the patient. Protamine was given. VICTOR M showed excellent valvular LVOT function and 3 chest tubes were placed, 1 left pleural, 1 posterior pericardial, and 1 anterior mediastinal. The sternum and mediastinum were then irrigated with antibiotic-infused saline and sternum was approximated with the ZipFix system. Soft tissues were then irrigated again and closed in layered fashion. All sponge, instrument, and needle counts were PATIENT'S NAME: SARAY DENNY [facility] AGE: 71 Y [address] ROOM: [address] [address] LOCATION: GPCU ADMIT DATE: 11/03/2016 OR/Procedure Report DISCHARGE DATE: 11/13/2016 FAMILY PHYSICIAN: Cyril Boss MD ATTENDING PHYSICIAN: Srini Pierce. We now removed the drapes and then reprepped and draped the right carotid endarterectomy incision that had been packed with Betadine soaked 4x4s. These were all removed and accounted for per their surgical counts and then we squared off the area with surgical towels and then inspected the aortotomy site. There was 1 tiny ooze at the apex of the graft and 1 small 7- 0 Prolene was placed here and then we copiously irrigated the area. It was hemostatic. The incision was now closed in a layered fashion with 2-0 Vicryl and 4-0 Monocryl. The patient tolerated the procedure well, was transferred to intensive care unit in stable condition. DO DUNIA ARMENDARIZ/jose antonio /[id number] d: 11/17/16 1441 t: 11/19/16 1516, OPERATIVE SUMMARY
[2016-11-03 11:12] LABS: HEMATOCRIT 35.9 % (33.0-46.0); HEMOGLOBIN 12.1 g/dL (10.0-15.0); MCH 28.8 pg (27.0-34.0); MCHC 33.7 gm/dL (32.0-36.5); MCV 85.5 fl (83.0-98.0); MPV 10.7 fl (9.4-12.4); RBC 4.2 M/uL (3.50-5.50); RDW-CV 14.8 % (11.9-14.6); WBC 9.1 K/uL (4.0-11.0)
[2016-11-03 11:26] LABS: ALBUMIN 3.2 gm/dL (3.5-5.0); ANION GAP 11.5 (10.0-19.0); BLOOD UREA NITROGEN 11 mg/dL (6-24); CALCIUM 8.7 mg/dL (8.5-10.5); CHLORIDE 93 mMol/L (96-110); CO2 28 mMol/L (22-32); CREATININE 0.6 mg/dL (0.5-1.1); ESTIMATED GFR (MDRD EQUATION) > 60; PHOSPHORUS 3.7 mg/dL (2.5-4.9); POTASSIUM 4.5 mMol/L (3.7-5.1); SODIUM 128 mMol/L (135-145)
--- NOTE | 2016-11-03 20:01 | NUR ---
PATIENT ADMITTED TO FLOOR DUE TO LOW SODIUM LEVEL, PLAN FOR A CABG, RT CEA AND A SEPTAL MYECTOMY TOMORROW. NEEDS TO HAVE A RENAL DRAWN AT MIDNIGHT AND RESULTS CALLED TO DR. MILLAN.
[2016-11-04 00:17] LABS: ALBUMIN 2.8 gm/dL (3.5-5.0); ANION GAP 12.9 (10.0-19.0); BLOOD UREA NITROGEN 14 mg/dL (6-24); CALCIUM 8.1 mg/dL (8.5-10.5); CHLORIDE 93 mMol/L (96-110); CO2 28 mMol/L (22-32); CREATININE 0.6 mg/dL (0.5-1.1); PHOSPHORUS 3.5 mg/dL (2.5-4.9); POTASSIUM 3.9 mMol/L (3.7-5.1); SODIUM 130 mMol/L (135-145)
[2016-11-04 00:24] LABS: ESTIMATED GFR (MDRD EQUATION) > 60
[2016-11-04 04:27] LABS: ALBUMIN 3.1 gm/dL (3.5-5.0); ANION GAP 11.8 (10.0-19.0); BLOOD UREA NITROGEN 14 mg/dL (6-24); CALCIUM 8.9 mg/dL (8.5-10.5); CHLORIDE 95 mMol/L (96-110); CO2 28 mMol/L (22-32); CREATININE 0.6 mg/dL (0.5-1.1); ESTIMATED GFR (MDRD EQUATION) > 60; PHOSPHORUS 3.6 mg/dL (2.5-4.9); POTASSIUM 3.8 mMol/L (3.7-5.1); SODIUM 131 mMol/L (135-145)
--- NOTE | 2016-11-04 05:46 | NUR ---
Significant event: A/O x 3. Up with minimal assist. IV to right arm with bicarb running at 50ml/hr. Gave 300ml of hypertonic solution last night at 50ml/hr for at sodium level of 128 followed by a bumex push of 4mg. patient down for surgery at 0525.
[2016-11-04 14:00] LABS: MCV 85.7 fl (83.0-98.0); MPV 10.6 fl (9.4-12.4); RDW-CV 14.7 % (11.9-14.6)
[2016-11-04 14:01] LABS: HEMATOCRIT 22.1 % (33.0-46.0); HEMOGLOBIN 7.5 g/dL (10.0-15.0); MCH 29.1 pg (27.0-34.0); MCHC 33.9 gm/dL (32.0-36.5); PLATELET COUNT 209 K/uL (150-450); RBC 2.58 M/uL (3.50-5.50); WBC 19.1 K/uL (4.0-11.0)
[2016-11-04 14:19] LABS: INR - (THERAPEUTIC) 1.17 (0.92-1.07); PROTIME 12.3 SECONDS (9.8-11.4)
[2016-11-04 14:27] LABS: PTT 31 SECONDS (25-32)
[2016-11-04 14:40] LABS: ALPHA ANGLE 78 degrees; CLOT FORMATION TIME 60 seconds; CLOTTING TIME 228 seconds; MAXIMUM CLOT FIRMNESS 65 mm; MAXIMUM LYSIS 1 %
[2016-11-04 14:41] LABS: ALPHA ANGLE 78 degrees (70-81); CLOTTING TIME 79 seconds (43-82); MAXIMUM CLOT FIRMNESS 68 mm (51-72)
[2016-11-04 14:52] LABS: BICARBONATE 27.8 mmol/L (18.0-23.0); PCO2 41 mmHg (35-45); PO2 249 mmHg (80-90); POTASSIUM 3.7 mEq/L (3.7-5.1); SODIUM 128 mEq/L (135-145)
[2016-11-04 14:53] LABS: PCO2 41 mmHg (35-45); PO2 412 mmHg (80-90)
[2016-11-04 14:55] LABS: POTASSIUM 4.4 mEq/L (3.7-5.1); SODIUM 130 mEq/L (135-145)
[2016-11-04 14:57] LABS: BICARBONATE 29.5 mmol/L (18.0-23.0); PCO2 42 mmHg (35-45); PO2 266 mmHg (80-90)
[2016-11-04 14:58] LABS: POTASSIUM 4.3 mEq/L (3.7-5.1); SODIUM 131 mEq/L (135-145)
[2016-11-04 15:00] LABS: BICARBONATE 30.3 mmol/L (18.0-23.0); PCO2 47 mmHg (35-45); PO2 281 mmHg (80-90)
[2016-11-04 15:01] LABS: POTASSIUM 4.5 mEq/L (3.7-5.1); SODIUM 131 mEq/L (135-145)
[2016-11-04 15:01] LABS: BICARBONATE 25.4 mmol/L (18.0-23.0); PCO2 41 mmHg (35-45); PO2 139 mmHg (80-90)
[2016-11-04 15:02] LABS: POTASSIUM 3.7 mEq/L (3.7-5.1); SODIUM 132 mEq/L (135-145)
[2016-11-04 15:21] LABS: BICARBONATE 27.9 mmol/L (18.0-23.0); PCO2 43 mmHg (35-45); PO2 152 mmHg (80-90)
[2016-11-04 15:34] LABS: BLOOD UREA NITROGEN 13 mg/dL (6-24); CALCIUM 8.3 mg/dL (8.5-10.5); CHLORIDE 100 mMol/L (96-110); CO2 26 mMol/L (22-32); CREATININE 0.9 mg/dL (0.5-1.1); ESTIMATED GFR (MDRD EQUATION) > 60; SODIUM 137 mMol/L (135-145)
[2016-11-04 18:20] LABS: HEMATOCRIT 25.5 % (33.0-46.0); HEMOGLOBIN 8.6 g/dL (10.0-15.0)
[2016-11-04 18:29] LABS: MAGNESIUM 2.8 mg/dL (1.8-2.6); POTASSIUM 4.8 mMol/L (3.7-5.1)
[2016-11-04 18:47] LABS: PLATELET COUNT 245 K/uL (150-450)
--- NOTE | 2016-11-04 18:54 | NUR ---
Significant Event: Patient back at 1445. Extubated at 1730. UP to chair at 1745. Apaced at 80. Alonso synephrine infusing at 1mcg/kg/min. Afebrile. Chest tubes x3 to suction. 4L NC. Pierpont at 1800. Stood with 3 assist. Follow up:
[2016-11-04 19:10] LABS: INR - (THERAPEUTIC) 1.23 (0.92-1.07); PROTIME 12.9 SECONDS (9.8-11.4)
[2016-11-04 23:00] LABS: ALPHA ANGLE 73 degrees (70-81)
[2016-11-04 23:01] LABS: CLOTTING TIME 60 seconds (43-82); MAXIMUM CLOT FIRMNESS 64 mm (51-72)
[2016-11-04 23:36] LABS: BICARBONATE 26.3 mmol/L (18.0-23.0); PCO2 40 mmHg (35-45); PO2 306 mmHg (80-90)
[2016-11-04 23:37] LABS: POTASSIUM 4.3 mEq/L (3.7-5.1); SODIUM 135 mEq/L (135-145)
[2016-11-05 00:12] LABS: PCO2 43 mmHg (35-45); PO2 169 mmHg (80-90)
[2016-11-05 00:25] LABS: ANION GAP 13.2 (10.0-19.0); BLOOD UREA NITROGEN 14 mg/dL (6-24); CALCIUM 7.6 mg/dL (8.5-10.5); CHLORIDE 105 mMol/L (96-110); CO2 25 mMol/L (22-32); CREATININE 0.7 mg/dL (0.5-1.1); ESTIMATED GFR (MDRD EQUATION) > 60; POTASSIUM 4.2 mMol/L (3.7-5.1); SODIUM 139 mMol/L (135-145)
[2016-11-05 04:19] LABS: BICARBONATE 29.1 mmol/L (18.0-23.0); PCO2 47 mmHg (35-45); PO2 150 mmHg (80-90)
[2016-11-05 04:45] LABS: ANION GAP 12.2 (10.0-19.0); BLOOD UREA NITROGEN 15 mg/dL (6-24); CALCIUM 8.4 mg/dL (8.5-10.5); CHLORIDE 107 mMol/L (96-110); CO2 25 mMol/L (22-32); CREATININE 0.7 mg/dL (0.5-1.1); ESTIMATED GFR (MDRD EQUATION) > 60; POTASSIUM 4.2 mMol/L (3.7-5.1); SODIUM 140 mMol/L (135-145)
[2016-11-05 04:52] LABS: HEMATOCRIT 23.3 % (33.0-46.0); MCV 86.3 fl (83.0-98.0); MPV 11.5 fl (9.4-12.4); RBC 2.7 M/uL (3.50-5.50); RDW-CV 14.9 % (11.9-14.6); WBC 11.1 K/uL (4.0-11.0)
[2016-11-05 04:55] LABS: HEMOGLOBIN 7.9 g/dL (10.0-15.0); MCH 29.3 pg (27.0-34.0); MCHC 33.9 gm/dL (32.0-36.5)
--- NOTE | 2016-11-05 05:44 | NUR ---
Significant Event: A/O. DID NOT REST WELL OVERNIGHT. HAD STARTED DOBUTAMINE AT 2MCG/KG/MIN. GAVE ALBUMIN 500ML X1. HAD INCREASED CHEST TUBE OUTPUT AND LOW BP. NOTIFIED DR. MILLAN. WENT BACK TO OR AT 2140. RETURNED FROM OR AT 2322. REPAIRED BLEEDING VESSEL. EXTUBATED AT 0215. ON 3L O2. SHALLOW BREATHS. CHEST TUBES NOW HAVE SERO/SANG DRAINAGE. ATRIAL WIRES CONNECTED TO PACER, SET AT 70BMP. HR 70-80'S. AFEBRILE. HAS PERICARDIAL FRICTION RUB. POOR PO INTAKE. HYPOACTIVE BOWEL SOUNDS. NO BM. INSULIN GTT AT 4UNIT/HR. MARGINAL UOP FROM CERVANTES. NORCO 2 TABS GIVEN FOR PAIN X1. MORPHINE 2MG GIVEN X2. BP DOES DECREASED SLIGHTLY AFTER MORPHINE GIVEN. Follow up: CONTINUE TO MONITOR.
[2016-11-05 13:02] LABS: HEMATOCRIT 26.7 % (33.0-46.0); HEMOGLOBIN 9.1 g/dL (10.0-15.0)
--- NOTE | 2016-11-05 17:52 | NUR ---
Significant Event: PATIENT A/O. SR WITH BUNDLE BRANCH, HRS 80S-90S. LUIZ GTT ON AT 0.8MCG/KG/MIN. AFIBRILE. CHEST TUBES X3 TO SUCTION, 580ML OUT. PLEURAL RUB. +1 EDEMA TO HANDS/FEET. 1L NC, LUNG SOUNDS CLEAR/DIM. HYPO BOWEL SOUNDS, NO BM, POOR APPETITE. MARGINAL UOP. NORCO GIVEN X2. MORPHINE X1. GAVE 1 UNIT OF PRBCS. HAS NOT STOOD, PT/OT TO SEE. Follow up: CONTINUE
[2016-11-06 03:54] LABS: ANION GAP 11.1 (10.0-19.0); BLOOD UREA NITROGEN 18 mg/dL (6-24); CALCIUM 8.4 mg/dL (8.5-10.5); CHLORIDE 103 mMol/L (96-110); CO2 25 mMol/L (22-32); CREATININE 0.7 mg/dL (0.5-1.1); ESTIMATED GFR (MDRD EQUATION) > 60; POTASSIUM 4.1 mMol/L (3.7-5.1); SODIUM 135 mMol/L (135-145)
[2016-11-06 03:57] LABS: HEMATOCRIT 24.1 % (33.0-46.0); HEMOGLOBIN 8.1 g/dL (10.0-15.0); MCH 29.2 pg (27.0-34.0); MCHC 33.6 gm/dL (32.0-36.5); MPV 11.5 fl (9.4-12.4); RBC 2.77 M/uL (3.50-5.50); RDW-CV 15.6 % (11.9-14.6)
--- NOTE | 2016-11-06 05:22 | NUR ---
Significant Event: A/O. SLEPT A COUPLE HOURS OVERNIGHT. WEANED TO RA. PLACED BACK ON 1L O2 WHILE SLEEPING. CONVERTED TO AFIB AT 0410, HR UP TO 150'S. . NOTIFIED DR. MILLAN. GAVE AMIODARONE BOLUS 150MG, THEN GTT. REPLACED POTASSIUM, 20MEQ. CONVERTED BACK TO SR, PAC'S AT 0511. DID HAVE TO INCREASE LUIZ TO 1.3MCG/KG/MIN WHEN IN AFIB. LUIZ CURRENTLY AT 0.8MCG/KG/MIN. CHEST TUBES HAD 370ML SERO/SANG DRAINAGE OUT. POOR PO INTAKE. NO BM. ACCUCHECKS WNL. STOPPED INSULIN GTT AFTER GIVING 10 UNITS LEVEMIR. LOW UOP. NOTIFIED DR. MILLAN. GAVE 500ML 5% ALBUMIN, NO IMPROVEMENT IN UOP. NOTIFIED . GAVE 25% ALBUMIN, 100ML FOLLOWED BY 2MG IVP BUMEX. HAD A TOTAL OF 865ML OUT OVERNIGHT. LIFT BACK TO BED FROM CHAIR. NORCO 2 TABS GIVEN X3 FOR C/O PAIN. L) ARTLINE D/C'D D/T LEAKING, DAMPENED WAVEFORM. Follow up: CONTINUE TO MONITOR
--- NOTE | 2016-11-06 10:21 | NUR ---
Introduced self and CM role to Bhavani and her granddaughter who was at bedside. Bhavani tells me that she was living at home, alone getting along good prior to coming into [facility]. She states that she did use a cane at baseline and did her own medications. SHe lives in [place], [place]. PCP is out of [place], she fills her medications at [facility] in [place]. She has Medicare AB and [facility] for insurance coverage. Both Bhavani and aubrey feel like she would benefit from a short skilled stay before going home. They would like for me to look into [facility] in [place]. Let them know that I would gather referral information and see if they had an open female bed for next week sometime and then update them after that. They were in agreement with this plan. Bhavani and aubrey tell me that they are fine with the SNF van transporting her or her going by personal car when it comes to the day of dismissal. Let them know we would see what the SNF preferred and how well she was getting around and then we would decide from there. They were fine with this plan. Denied any other questions, needs or concerns. CM to continue to follow and assist. Referral information was gathered and will be faxed once this CM has called [facility] to insure that they have an open female bed and are fine with me faxing information to them.
[2016-11-06 14:44] LABS: HEMATOCRIT 23.5 % (33.0-46.0)
[2016-11-06 14:45] LABS: HEMOGLOBIN 7.9 g/dL (10.0-15.0)
--- NOTE | 2016-11-06 19:20 | NUR ---
Significant Event: Alert and oriented. On room air. Weaning Alonso-Synephrine to keep MAP >90. Pain well controlled with Vega. Weakly transfers between bed and chair with 2PA. Poor appetite. Denies needs/complaints. Family present throughout the day. Follow up: continue
--- NOTE | 2016-11-07 04:41 | NUR ---
Significant Event: PT WITH EPISODE OF AFIB/RVR AT 191; DR. MILLAN UPDATED. ORDERS RECEIVED TO GIVE AMIO BOLUS DUE TO RATES OF 105-120. CONVERSION WAS IMMEDIATELY AFTER ALBUTERAL NEB ADMINISTERED SO RESPIRATORY TREATMENTS ALSO CHANGED TO XOPENEX. AT 1940, PT CONVERTED BACK TO NSR WITHOUT RECIEVING AMIO BOLUS. DR. MILLAN UPDATED AND ORDER RECEIVED TO HOLD AMIO BOLUS. LUIZ WEANED OFF AT 2200 AND REMAINED OFF UNTIL 0140. AT 0135, PT HAD ANOTHER EPISODE OF AFIB/RVR RATES 120-150. DR. MILLAN UPDATED AND ORDER RECIEVED TO RESTART AMIO PROTOCOL INCLUDING BOLUS. PT CONVERTED BACK TO NSR AT 0230 AND LUIZ WEANED OFF BY 0400. NEURO REMAINS INTACT. PT REMAINS ON RA THIS NOC. APPETITE IMPROVING BUT NOT BACK TO BASELINE. NO BM THIS SHIFT BUT IS PASSING FLATUS. UP TO BSC TO ATTEMPT TO HAVE BM. UOP ADEQUATE. 1240 ML OUT THIS SHIFT (+231ML LAST 12 HR) AND 1965ML OUT FOR 24 HR (+1119 FOR 24 HR). SURGICAL INCISIONS REMAIN INTACT. CT OUTPUT THIS SHIFT 130M ML S/S DRAINAGE (BULB SUCTION). RIJ DRESSING CHANGED DUE TO BECOMING NON-OCCLUSIVE. Follow up: MONITOR BP, IF PATIENT ABLE TO MAINTAIN WITHOUT LUIZ THEN PCU STATUS. MAN SANCHEZ RN
[2016-11-07 06:02] LABS: BASOPHIL % 0.2 %; EOSINOPHIL % 0.2 %; HEMATOCRIT 25.7 % (33.0-46.0); HEMOGLOBIN 8.7 g/dL (10.0-15.0); IMMATURE GRANULOCYTE # 0.1 K/uL (0.0-0.3); IMMATURE GRANULOCYTE % 0.7 %; LYMPHOCYTE # 0.9 K/uL (0.8-4.0); LYMPHOCYTE % 5.7 %; MCH 29.1 pg (27.0-34.0); MCHC 33.9 gm/dL (32.0-36.5); MONOCYTE # 1.5 K/uL (0.0-1.0); MONOCYTE % 9.9 %; MPV 11.3 fl (9.4-12.4); NEUTROPHIL # (ANC) 12.8 K/uL (1.8-7.8); NEUTROPHIL % 83.3 %; NRBC % 0 /100WBC (0-0.00); PLATELET COUNT 170 K/uL (150-450); RBC 2.99 M/uL (3.50-5.50); RDW-CV 15.5 % (11.9-14.6); WBC 15.4 K/uL (4.0-11.0)
[2016-11-07 06:04] LABS: ANION GAP 10.9 (10.0-19.0); BLOOD UREA NITROGEN 24 mg/dL (6-24); CALCIUM 8.5 mg/dL (8.5-10.5); CHLORIDE 101 mMol/L (96-110); CO2 27 mMol/L (22-32); CREATININE 0.8 mg/dL (0.5-1.1); ESTIMATED GFR (MDRD EQUATION) > 60; POTASSIUM 3.9 mMol/L (3.7-5.1); SODIUM 135 mMol/L (135-145)
--- NOTE | 2016-11-07 09:53 | NUR ---
A - PT SCREENED D/T LOS. S/P CABG. APPETITE IMPROVING BUT NOT BACK TO BASELINE. 1-2+ EDEMA. HT: 63" WT: 185# (11/07), 171# (10/30 ADMIT), BMI: 32.3. WT UP 14# (8%) D/T EDEMA. LABS: ACCUCHECK WNL-REAS, GLU 125, ALB 3.1, PREALB 18, WBC 15.4, HGB/HCT 8.7/25.7. MEDS: SSI, PEPCID, LASIX, BOWEL/NAUSEA. EST NEEDS (BASED ON ADMIT WT): [id number] KCAL (20-25 KCAL/KG), 78-93 G PRO (1-1.2 G/KG), 2000 ML FLUID PER MD. DIET: CARDIAC, 2000 ML FLUID. INTAKE: SIPS-75% D - INADEQUATE NUTRIENT INTAKE R/T DECREASED APPETITE S/P CABG AEB INTAKE RECORD. I - GOAL FOR INTAKE 50-75% BY NEXT ASSESSMENT. WILL ADD ENSURE BID TO INC NUTRIENT INTAKE. M/E - WILL MONITOR INTAKE. F/U IN 3-5 DAYS.
--- NOTE | 2016-11-07 17:27 | NUR ---
Significant Event: pt here from ICU this afternoon. 2 asst to chair/commode. Kim intact, uop marginal. 02 room air. NOrco at 1630x1. JOAQUÍN drain intact. Amio drip at 0.5mcg/kg/hr, NSR rates 60s. Pt family here helps with cares. Pt alert/orientedx3, neuros neg. Pt got iron today in icu. SBP elevating from previous. HGB 8.7. K 3.9 Follow up:
[2016-11-08 05:10] LABS: BASOPHIL % 0.2 %; EOSINOPHIL # 0.1 K/uL (0.0-0.5); EOSINOPHIL % 0.8 %; HEMATOCRIT 26.7 % (33.0-46.0); HEMOGLOBIN 9.1 g/dL (10.0-15.0); IMMATURE GRANULOCYTE # 0.1 K/uL (0.0-0.3); IMMATURE GRANULOCYTE % 0.6 %; LYMPHOCYTE # 0.8 K/uL (0.8-4.0); LYMPHOCYTE % 5.8 %; MCH 29.3 pg (27.0-34.0); MCHC 34.1 gm/dL (32.0-36.5); MCV 85.9 fl (83.0-98.0); MONOCYTE # 1.3 K/uL (0.0-1.0); MONOCYTE % 9.6 %; MPV 10.5 fl (9.4-12.4); NEUTROPHIL # (ANC) 11.5 K/uL (1.8-7.8); NRBC % 0 /100WBC (0-0.00); RBC 3.11 M/uL (3.50-5.50); RDW-CV 15.4 % (11.9-14.6); WBC 13.9 K/uL (4.0-11.0)
[2016-11-08 05:11] LABS: PLATELET COUNT 226 K/uL (150-450)
[2016-11-08 05:23] LABS: ANION GAP 11.6 (10.0-19.0); BLOOD UREA NITROGEN 23 mg/dL (6-24); CALCIUM 8.4 mg/dL (8.5-10.5); CHLORIDE 102 mMol/L (96-110); CO2 25 mMol/L (22-32); CREATININE 0.6 mg/dL (0.5-1.1); ESTIMATED GFR (MDRD EQUATION) > 60; MAGNESIUM 2.1 mg/dL (1.8-2.6); POTASSIUM 4.6 mMol/L (3.7-5.1); SODIUM 134 mMol/L (135-145)
--- NOTE | 2016-11-08 05:37 | NUR ---
Significant Event: A/0 X 3, PLEASANT AND COOPERATIVE. AMBULATES 2 ASSIST. VSS, SBP'S 1'TEENS TO 140'S, HR 70-80'S. AFEBRILE. AMIODARONE CONTINUOUS AT 0.5 MG/HR. CERVANTES HAD 600 ML UOP. JOAQUÍN 140 ML OUTPUT. STARTED TO COMPAIN ABOUT NO BM, SCHEDULED COLACE WAS GIVEN AND ALSO PRUNE JUICE WITH NO RESULTS. WILL REQUEST ADDITIONAL MEDS TODAY IF STILL NO RESULT. OTHER THAN THAT SHE HAS NOT HAD ANY PAIN AND DID NOT REQUEST ANY PAIN MEDS. FAMILY AT BEDSIDE ENTIRE EVENING. Follow up:
--- NOTE | 2016-11-08 17:18 | NUR ---
Significant Event: GOOD DAY, MOM AMD PRUNE JUICE EARLY THIS AM, LARGE HARD BM LATE MORNING. PT FEELS MUCH BETTER, EATTING GOOD. UP WITH PT/OT TODAY, WEAK BUT TRIES. USES GOOD STERNAL PRECAUTIONS. 2+ GENERAL EDEMA. MORE IN HANDS AND ARMS THAN LEGS AND FEET. Follow up: INCREASE ACTIVITY, MONITOR
--- NOTE | 2016-11-09 05:17 | NUR ---
Significant Event: Patient alert and oriented. Amio drip at 0.5mg/min. Patient converted into atrial fib at 0201. Physician notified and orders recieved for amio bolus and increase drip to 1mg/min. Patient in/out of fib. In sinus rhythm when bolus to floor. Orders clarifed and bolus given and drip increased. Remains in SR at this time. Kim patent with sylwia/blood tinged urine. 1175 urine output this shift. Pleasant and cooperative with cares. Follow up: continue to monitor
--- NOTE | 2016-11-09 15:15 | NUR ---
[facility] [place], she tells me that they will accept Bhavani when she is ready to dismiss. I let Diana know I would fax her an update today and we would probably be looking at Saturday 11/11, for her to come to them from what I could see from MDs charting. Diana was fine with this. Packet started, orders printed and ID Screen is complete and in the packet. Stopped by Bhavanis' room, her daughter and granddaughters were present during my visit. Let them know that [facility] would accept when she was ready to dismiss. All were in agreement with this plan to go there for a short skilled stay. After her SNF stay, he is planning on staying with her daughter that lives in [place] for a short time as well. Let them know that this was fine. They asked if she could go via private auto or [employer] van. Told them that this would be up to doctor and also depended on how she was doing with therapies, so we would see what doctors recommended and then go from there. I anticipate that she will need to go via [employer] van but will see what and Shelley Jones think. No other questions, needs or concerns. CM to continue to follow and assist. CM name and number left on her whiteboard for any future questions or concerns.
--- NOTE | 2016-11-09 16:47 | NUR ---
Significant event: A&Ox3. Up 1 assist with walker and gaitbelt, takes short shuffling steps. HR 70-90's, SR. Afebrile. SBP 120-140's. After this bag of amiodarone is done, SL IV and start PO amiodarone of 400 mg as ordered. D/C central line once infusion is complete. Peripheral IV to R) hand. Kim out at 1158, patient has been voiding well, yellow urine. Sternum approximated, remind patient of sternal precautions. [place] sites sutured. CT puncture sites covered by dressing, c/d/i. On RA. [place] 2 tabs given at 0650 today. Follow Up: Continue current POC
--- NOTE | 2016-11-10 04:41 | NUR ---
Significant events: Pt A/Ox2. VSS, SBP 120-150's, on RA. Up 1PA, unable to use R) arm d/t torn rotator cuff. Needs reminders for sternal precautions. Sternum open to air, edges approximated. CT sites covered, dry and intact, small amount of shadow drainage. No complaints of pain. R) carotid open to air. Slept most of shift, cooperative with cares.
--- NOTE | 2016-11-10 11:51 | NUR ---
Talked with Shelley Jones in the hallway, she tells me that tomorrow, 11/11, would be fine for Bhavani to go to [facility]. She also states that she feels like she would be able to go into a family car if that is what she prefers. Shelley also wrote a script for Bhavani to have a raised FWW upon dismissal. That script is to be sent with her or her family so they can obtain one after she gets out of the SNF as they should provide one for her during her stay there. I updated Diana at [facility] that we were planning on tomorrow for Bhavani to come to them, family would be transporting her and leaving here around 1100. Diana was fine with this, just ask that we fax dismissal orders and have RN to RN report called in before she leaves. Let her know that we will do this. Updated RN Armida to all of the above, she is fine with the plan. Packet started, orders printed and ID Screen is done and in the packet. Talked with Bhavani about going to SNF tomorrow, she is fine with it and states someone from her family will be here at 1100 tomorrow to pick her up and transport her. Offered to call her family to make sure they knew to be here before 1100 but she tells me that I don't need to call them she will tell them when she sees them later today. No other questions, needs or concerns. CM to continue to follow and assist. Plan [facility] at 1100 on Wednesday.
--- NOTE | 2016-11-10 15:07 | NUR ---
SIGNIFICANT EVENT: Patient alert and oriented. On RA. VSS. Up 1A with walker, gaitbelt. HR 70-80's. SBP 117-150's. Amiodarone changed to PO. Bumex changed to lasix. CT sites covered, dry, intact. R) carotid open to air. Remind patient of sternal precautions. No complaints of pain. 2000mL fluid restriction. FOLLOW UP: Patient to go to [facility] tomorrow around 1100.
--- NOTE | 2016-11-10 15:15 | NUR ---
CABG DIET ED COMPLETED W/PT AND PT'S DAUGHTER. WRITTEN INFORMATION PROVIDED, ALONG WITH RD CONTACT INFO. PT REPORTS APPETITE IS IMPROVING AND SHE LIKES THE ENSURE ENLIVE; DOES PREFER THE STRAW[facility]ERRY FLAVOR VS [facility]ANILLA.
--- NOTE | 2016-11-11 05:02 | NUR ---
A/O. HR 80-90s. SBP 90-110s. LOPRESSOR HELD TONIGHT. AFIB AT 2300 BOLUS 150MG IV AMIODARONE CURRENTLY SR. 1A UP TO BATHROOM. AFEBRILE. DENIES PAIN. ROOM AIR. NO BM. HEART HUGGER. CT SITES CATHERINE LUX. PLAN FOR [facility] TODAY FAMILY TO TRANSPORT.
[2016-11-11 05:48] LABS: BASOPHIL # 0.1 K/uL (0.0-0.2); BASOPHIL % 0.3 %; EOSINOPHIL # 0.3 K/uL (0.0-0.5); EOSINOPHIL % 1.6 %; IMMATURE GRANULOCYTE # 0.3 K/uL (0.0-0.3); IMMATURE GRANULOCYTE % 1.9 %; LYMPHOCYTE # 1.3 K/uL (0.8-4.0); LYMPHOCYTE % 7.1 %; MCH 30.1 pg (27.0-34.0); MONOCYTE # 0.5 K/uL (0.0-1.0); MONOCYTE % 2.7 %; NEUTROPHIL # (ANC) 15.3 K/uL (1.8-7.8); NEUTROPHIL % 86.4 %; NRBC % 0 /100WBC (0-0.00); RBC 3.65 M/uL (3.50-5.50); RDW-CV 16.8 % (11.9-14.6)
[2016-11-11 05:49] LABS: MCHC 33.3 gm/dL (32.0-36.5); MCV 90.4 fl (83.0-98.0); WBC 17.7 K/uL (4.0-11.0)
[2016-11-11 05:50] LABS: PLATELET COUNT 467 K/uL (150-450)
[2016-11-11 06:03] LABS: ANION GAP 11.9 (10.0-19.0); BLOOD UREA NITROGEN 17 mg/dL (6-24); CALCIUM 8.8 mg/dL (8.5-10.5); CHLORIDE 96 mMol/L (96-110); CO2 28 mMol/L (22-32); CREATININE 0.8 mg/dL (0.5-1.1); ESTIMATED GFR (MDRD EQUATION) > 60; POTASSIUM 3.9 mMol/L (3.7-5.1); SODIUM 132 mMol/L (135-145)
[2016-11-11 10:34] LABS: BILIRUBIN URINE NEGATIVE (NEGATIVE); BLOOD URINE 50 /UL (NEGATIVE); COLOR URINE YELLOW (YELLOW); GLUCOSE URINE NEGATIVE (NEGATIVE); KETONE URINE 5 mg/dL (NEGATIVE); LEUKOCYTES URINE 100 /UL (NEGATIVE); NITRITE URINE NEGATIVE (NEGATIVE); PROTEIN URINE 30 mg/dL (NEGATIVE); SPEC GRAVITY URINE 1.005 (1.003-1.035); TURBIDITY URINE 1+ (CLEAR); UROBILINOGEN URINE 8 mg/dL (NORMAL)
[2016-11-11 10:40] LABS: BACTERIA URINE FEW (NEGATIVE); EPITHELIAL URINE RARE #/HPF (NEGATIVE); RBC URINE 0-2 #/HPF (NEGATIVE)
--- NOTE | 2016-11-11 13:07 | NUR ---
Call from ABRAHAM Lange letting me know that Bhavani wasn't going to be able to transfer today due to her WBC going up. She tells me that she has already talked with Bhavani and her granddaughter who is in the room about not transfering today so they are aware, but she wanted me to update the facility. Let her know that I would do this. I phoned over to [facility], talked with Diana, let her know about the above. She was fine with Bhavani not coming to them today. Told her I would talk with her tomorrow morning to see if Bhavani was any better and we would work out further details of dismissal plans at that time. Diana was again in agreement with this plan. CM to continue to follow and assist.
--- NOTE | 2016-11-11 16:18 | NUR ---
Significant Event: A/O. Afebrile. SBPs 90s and low 100s. Lisinopril and lopressor held. Room air. Went into afib around 0815 and converted without intervention. Dismissal on hold d/t elevated WBC - urine cx obtained and 2V CXR. Sputum cx needed. Up with 1 assist and walker. Shower today. Follow up: continue plan of care
--- NOTE | 2016-11-12 04:11 | NUR ---
Significant Event: Patient A/Ox3. VSS on RA. Sinus rhythm. Patient has had no complaints of pain. Sternal incision is open to air, edges approximated, no redness or drainage noted. Chest tube sites also open to air, healing well. Heart hugger on, patient follows sternal precautions well. Up 1-assist with walker and gait belt. Follow up: Home in the next few days?
[2016-11-12 04:17] LABS: BASOPHIL % 0.2 %; EOSINOPHIL # 0.4 K/uL (0.0-0.5); EOSINOPHIL % 1.9 %; HEMATOCRIT 28.9 % (33.0-46.0); HEMOGLOBIN 9.7 g/dL (10.0-15.0); IMMATURE GRANULOCYTE # 0.3 K/uL (0.0-0.3); IMMATURE GRANULOCYTE % 1.3 %; LYMPHOCYTE # 1.2 K/uL (0.8-4.0); LYMPHOCYTE % 6.4 %; MCH 30.2 pg (27.0-34.0); MCHC 33.6 gm/dL (32.0-36.5); MONOCYTE # 2.4 K/uL (0.0-1.0); MONOCYTE % 12.9 %; MPV 9.8 fl (9.4-12.4); NEUTROPHIL # (ANC) 14.4 K/uL (1.8-7.8); NEUTROPHIL % 77.3 %; NRBC % 0 /100WBC (0-0.00); PLATELET COUNT 439 K/uL (150-450); RBC 3.21 M/uL (3.50-5.50); RDW-CV 16.5 % (11.9-14.6)
[2016-11-12 04:18] LABS: WBC 18.6 K/uL (4.0-11.0)
[2016-11-12 04:32] LABS: ALBUMIN 2.6 gm/dL (3.5-5.0); ALK PHOS 60 IU/L (33-138); ALT 23 IU/L (12-78); ANION GAP 10.4 (10.0-19.0); AST 26 IU/L (10-40); CALCIUM 8.4 mg/dL (8.5-10.5); CHLORIDE 97 mMol/L (96-110); CO2 30 mMol/L (22-32); CREATININE 0.8 mg/dL (0.5-1.1); ESTIMATED GFR (MDRD EQUATION) > 60; POTASSIUM 4.4 mMol/L (3.7-5.1); SODIUM 133 mMol/L (135-145)
[2016-11-12 04:41] LABS: BLOOD UREA NITROGEN 26 mg/dL (6-24)
--- NOTE | 2016-11-12 13:52 | NUR ---
Talked with ABRAHAM Arias, she tells me that Bhavani won't be able to go to [facility] today because her WBC is still high and they are waiting for urine cultures to come back. I called and updated Diana at [facility] to this, she was fine with this, states that they can take tomorrow if she was ready to come to them at that time. JOSE RAFAEL mendes to follow and assist.
--- NOTE | 2016-11-12 17:13 | NUR ---
Significant Event: A/O X 3. BP's 100-160's HR 80-70's. Patient went into afib throught shift and converts back with no intervention. MD is aware. Crackles in L) lower base during first 2 assessments. Ambulated with 1x assist, walker, and gait belt. WBC elevated. Possible UTI. D/C Levaquin and ordered cipro. No complaints of pain. Sternal incision C,D,I. Chest tube sites C/D/I with slight redness around edges. ACHS Accu checks. Follow up: Continue patient plan of care. Plan to discharge tomorrow
[2016-11-13 03:25] LABS: HEMATOCRIT 28.2 % (33.0-46.0); HEMOGLOBIN 9.6 g/dL (10.0-15.0); MCH 30.7 pg (27.0-34.0); MCV 90.1 fl (83.0-98.0); MPV 9.6 fl (9.4-12.4); PLATELET COUNT 464 K/uL (150-450); RBC 3.13 M/uL (3.50-5.50); RDW-CV 16.2 % (11.9-14.6)
[2016-11-13 03:26] LABS: WBC 17.9 K/uL (4.0-11.0)
[2016-11-13 03:39] LABS: ANION GAP 12.3 (10.0-19.0); BLOOD UREA NITROGEN 22 mg/dL (6-24); CALCIUM 8.3 mg/dL (8.5-10.5); CHLORIDE 96 mMol/L (96-110); CO2 30 mMol/L (22-32); CREATININE 0.7 mg/dL (0.5-1.1); ESTIMATED GFR (MDRD EQUATION) > 60; POTASSIUM 4.3 mMol/L (3.7-5.1); SODIUM 134 mMol/L (135-145)
--- NOTE | 2016-11-13 04:23 | NUR ---
Significant Event: Patient is A/Ox3. VSS on RA. Up 1-assist to bathroom with walker and gait belt. Patient shuffles with ankle brace. Lung sounds diminished. Edema seems to have increased from Wednesday night. Patient remained in sinus rhythm. Afebrile. No bowel movement this shift. Follow up: Discharge to [facility] today?
[2016-11-13 05:00] LABS: ABSOLUTE NEUTROPHIL CT (ANC) 14.5 K/uL (1.8-7.8); BANDED NEUTROPHIL # 0.4 K/uL (0.0-0.1); BANDED NEUTROPHILS % 2 %; LYMPHOCYTE % 11 %; MONOCYTE # 1.1 K/uL (0.0-1.0); SEGMENTED NEUTROPHIL # 14.1 K/uL (1.8-7.8); SEGMENTED NEUTROPHIL % 79 %
--- NOTE | 2016-11-13 11:34 | NUR ---
Transfer Note Patient A/O x 3 and up with 1 assist, walker, and gaitbelt. Wears brace to left foot for ankle support. Vital signs stable: HR 69 (in/out Afib), BP 111/64, RR 16, O2 saturation 97% room air, and temperature 98.4 F. Denies pain or shortness of breath. Lung sounds with crackles to left base. Heart murmur noted. Sternal incision and chest tube sites with edges approximated and no signs/symptoms of infections. Bowel sounds active, last BM 11/12. Denies numbness or tingling. Edema to lower extremities present. Left lower leg more edematous than right. [place] sites from CABG to Left leg as well. Buttocks red, but blanchable. Denies any needs at this time upon transfer. Report given to [facility] at [facility]. Denies any further questions at this time. Needs to have appointments made with Dr. Pierce, Dr. Chang, and Dr. Viera in 2 weeks. Shira RN 11/13/16
--- NOTE | 2016-11-13 12:45 | NUR ---
Patient off floor at 1242. Left with daughter by private care to [facility] in [place]. Shira ROSARIO 11/13/16
--- NOTE | 2016-11-13 13:04 | NUR ---
Talked with Shelley Jones this morning about Bhavani dismissing today. Shelley states she was going to round on her next and get orders done so Bhavani could go to [facility] today. I went passed Crook[place] room and visited with her and her daughter who was also in the room about this. They are both in agreement with this plan and daughter is still fine with transporting her. Orders were completed and faxed over to [facility] before Bhavani left. Packet was complete. Orders, ID Screen and script for FWW were all in the packet along with other information as well and was to be sent with Bhavani and her daughter when they left. RN to RN number was on the chart for RN Ti to call in report before Bhavani left the building. I phoned over to [facility] and talked with Diana, shared all of the above with her. Diana was fine with Bhavani coming today and states they will have a lunch tray ready for her when she gets there this afternoon. No other questions, needs or concerns. CM to continue to follow and assist.
== END 2016-11-13 12:42 | DRG 229 ==
LOC: GPOC 10:04 → GPCU 16:52 → GICU 16:52 → EDSTATUS 11-04 → GNTU 11-04 09:01 → GICU 11-04 13:30 → GPCU 11-07 12:03
PROVIDERS: Internal Medicine Cardiovascular Disease; Nurse Practitioner Women's Health; Thoracic Surgery (Cardiothoracic Vascular Surgery); ADMIT Thoracic Surgery (Cardiothoracic Vascular Surgery)
PROC: 021209W Bypass Coronary Artery, Three Arteries from Aorta with Autologous Venous Tissue, Open Approach (ICD-10-PCS; principal; 2016-11-04)
PROC: B24BZZ4 Ultrasonography of Heart with Aorta, Transesophageal (ICD-10-PCS; principal; 2016-11-04)
PROC: 03CK0ZZ Extirpation of Matter from Right Internal Carotid Artery, Open Approach (ICD-10-PCS; principal; 2016-11-04)
PROC: 02B50ZZ Excision of Atrial Septum, Open Approach (ICD-10-PCS; principal; 2016-11-04)
PROC: 02100Z9 Bypass Coronary Artery, One Artery from Left Internal Mammary, Open Approach (ICD-10-PCS; principal; 2016-11-04)
PROC: 5A1221Z Performance of Cardiac Output, Continuous (ICD-10-PCS; principal; 2016-11-04)
PROC: 03UK0KZ Supplement Right Internal Carotid Artery with Nonautologous Tissue Substitute, Open Approach (ICD-10-PCS; principal; 2016-11-04)
PROC: 06BQ4ZZ Excision of Left Saphenous Vein, Percutaneous Endoscopic Approach (ICD-10-PCS; principal; 2016-11-04)
PROC: 02HQ32Z Insertion of Monitoring Device into Right Pulmonary Artery, Percutaneous Approach (ICD-10-PCS; principal; 2016-11-04)
PROC: 0W3C0ZZ Control Bleeding in Mediastinum, Open Approach (ICD-10-PCS; 2016-11-04)
PROC: 30233N1 Transfusion of Nonautologous Red Blood Cells into Peripheral Vein, Percutaneous Approach (ICD-10-PCS; 2016-11-04)
PROC: 30233N1 Transfusion of Nonautologous Red Blood Cells into Peripheral Vein, Percutaneous Approach (ICD-10-PCS; 2016-11-05)
PROC: 30233N1 Transfusion of Nonautologous Red Blood Cells into Peripheral Vein, Percutaneous Approach (ICD-10-PCS; 2016-11-06)
DX: I25.10 Atherosclerotic heart disease of native coronary artery without angina pectoris (principal); I95.9 Hypotension, unspecified; I42.1 Obstructive hypertrophic cardiomyopathy; I48.0 Paroxysmal atrial fibrillation; N39.0 Urinary tract infection, site not specified; E87.1 Hypo-osmolality and hyponatremia; B96.5 Pseudomonas (aeruginosa) (mallei) (pseudomallei) as the cause of diseases classified elsewhere; I97.89 Other postprocedural complications and disorders of the circulatory system, not elsewhere classified; D62 Acute posthemorrhagic anemia; I97.611 Postprocedural hemorrhage of a circulatory system organ or structure following cardiac bypass; I65.23 Occlusion and stenosis of bilateral carotid arteries; I10 Essential (primary) hypertension; I73.9 Peripheral vascular disease, unspecified; M19.90 Unspecified osteoarthritis, unspecified site; Y83.2 Surgical operation with anastomosis, bypass or graft as the cause of abnormal reaction of the patient, or of later complication, without mention of misadventure at the time of the procedure; B96.4 Proteus (mirabilis) (morganii) as the cause of diseases classified elsewhere
CPT/HCPCS: J0282; J0690; J0885; J1250; J1644; J1885; J2250; J2270; J2370; J2405; J2440; J2916; J3475; J3480; J3490; J7040; J7050; J7060; J7121; P9016; P9045; P9047; Q9967